=== PATIENT | male | born 1980 | race Caucasian/White ===

== ENCOUNTER 2016-07-10 20:20 | Emergency (ER) | payer BC | END 2016-07-10 22:05 | disposition home or self-care (01) | LOC: ER 20:20 | DX: L03.211 Cellulitis of face (principal); E78.5 Hyperlipidemia, unspecified; F17.210 Nicotine dependence, cigarettes, uncomplicated; Z79.899 Other long term (current) drug therapy | CPT/HCPCS: Q9967 ==

== ENCOUNTER 2016-07-23 21:11 | Emergency (ER) | payer OTHER | END 2016-07-23 22:54 | disposition home or self-care (01) | LOC: ER 21:11 | DX: S90.31XA Contusion of right foot, initial encounter (principal); W22.8XXA Striking against or struck by other objects, initial encounter ==